=== PATIENT | female | born 1985 | race Caucasian/White ===

== ENCOUNTER 2018-08-31 23:24 | Emergency (ER) | payer OTHER ==
[~2018-08-31] VITALS: Ht 149.9 cm; Wt 60.8 kg
[2018-08-31] MEDS ORDERED: FOLIC ACID1 MG (23:45)
[2018-08-31] MEDS ORDERED: PRENATAL TABLE1 EAC1 (23:46)
[2018-08-31] MEDS ORDERED: COLACE100 MG (23:46)
== END 2018-09-01 16:50 | disposition home or self-care (01) ==
LOC: ER 23:24
DX: K59.09 Other constipation (principal)